=== PATIENT | male | born 1990 | race Two or more races ===

== ENCOUNTER 2017-07-28 05:36 | Day surgery (SDC) | payer MEDICAID ==
[2017-07-24 08:45] VITALS: BP 126/81
[~2017-07-28] VITALS: Ht 170.2 cm; Wt 80.9 kg
[~2017-07-28 05:36] MED LIST: No meds per pt.
[2017-07-28] MEDS ORDERED: LACTATED RINGERS 1,000 ML IV SCH (06:46)
[2017-07-28] MEDS ORDERED: LIDOCAINE 1%, 2ML ONE (06:55)
[2017-07-28] MEDS ORDERED: LIDOCAINE 1%, 2ML SQ PRN (07:00)
[2017-07-28] MEDS ORDERED: LIDOCAINE GEL 2%, 5ML ONE (07:15)
[2017-07-28] MEDS ORDERED: EPINEPHRINE 1 MG/ML, 1ML ONE (07:15)
[2017-07-28] MEDS ORDERED: EPINEPHRINE TOPICAL SOLN 1 MG/ML, 30ML ONE (07:17)
[2017-07-28] MEDS ORDERED: FENTANYL PF 100 MCG/2ML ONE ×3 (08:04→09:36)
[2017-07-28] MEDS ORDERED: MIDAZOLAM 1 MG/ML, 2ML ONE (08:04)
[2017-07-28] MEDS ORDERED: PROPOFOL 10 MG/ML, 20ML ONE (08:05)
[2017-07-28] MEDS ORDERED: ROCURONIUM 10 MG/ML ONE (08:05)
[2017-07-28] MEDS ORDERED: CEFAZOLIN 1,000 MG ONE ×2 (08:47→08:48)
[2017-07-28] MEDS ORDERED: DEXAMETHASONE 4 MG/ML, 1ML ONE ×2 (08:47)
[2017-07-28] MEDS ORDERED: GLYCOPYRROLATE 0.4 MG/2 ML, 2ML ONE (08:48)
[2017-07-28] MEDS ORDERED: NEOSTIGMINE 1 MG/ML, 10ML ONE (08:48)
[2017-07-28] MEDS ORDERED: ACETAMINOPHEN 325 MG TABLET PO PRN (09:00)
[2017-07-28] MEDS ORDERED: OXYcodone 5 MG/5 ML ORAL.SOL UDC PO PRN (09:00)
[2017-07-28] MEDS ORDERED: FENTANYL PF 100 MCG/2ML IV PRN (09:00)
[2017-07-28] MEDS ORDERED: PROMETHAZINE 25 MG/ML, 1ML IV PRN (09:00)
[2017-07-28] MEDS ORDERED: HYDROmorphone 1 MG/ML, 1ML IV PRN (09:00)
[2017-07-28] MEDS ORDERED: ONDANSETRON 2MG/ML, 2ML IVPush PRN (09:00)
[2017-07-28] MEDS ORDERED: OXYMETAZOLINE NASAL SPRAY 0.05%, 15ML ONE (09:20)
[2017-07-28] MEDS ORDERED: OXYcodone 5 MG/5 ML ORAL.SOL UDC ONE (09:36)
[2017-07-28] MEDS ORDERED: ACETAMINOPHEN 650 MG/20.3 ML UDC ONE (09:36)
== END 2017-07-28 11:50 ==
LOC: OUT 05:36
PROVIDERS: ATTEND Otolaryngology
DX: D10.39 Benign neoplasm of other parts of mouth (principal); K14.9 Disease of tongue, unspecified
CPT/HCPCS: 31535; 42140; 88305; J0690; J1100; J2250; J2704; J2710; J3010; J7120; 88302; J0171